=== PATIENT | male | born 1970 | race Two or more races ===

== ENCOUNTER 2020-10-23 15:23 | Emergency (ER) | payer MEDICAID ==
[~2020-10-23] VITALS: Ht 157.5 cm; Wt 50.0 kg
[2020-10-23 18:07] LABS: BASOPHILS % 1.1 % (0.0-2.0); EOSINOPHILS % 14.7 % (0.0-5.0); HEMOGLOBIN. 13.3 g/dL (14.0-18.0); LYMPHOCYTES % 17.1 % (20.0-50.0); MEAN CORPUSCULAR HEMOGLOBIN 29.6 pg (28.0-32.0); MEAN CORPUSCULAR VOLUME 86.8 fL (80.0-94.0); MEAN PLATELET VOLUME 8.3 fl (7.4-10.4); MONOCYTES % 6.1 % (2.0-8.0); PLATELET 208 x1000/uL (130-400); RED BLOOD CELL COUNT 4.49 mill/uL (4.7-6.1); RED CELL DISTRIBUTION WIDTH 13.6 % (11.6-14.6)
[2020-10-23 18:13] LABS: CHLORIDE 108 mEq/L (98-107)
[2020-10-23] MEDS ORDERED: CLOT15CR27 TP (18:23)
[2020-10-23 18:35] VITALS: BP 127/71
[2020-10-24] MEDS ORDERED: TOPUD PO (09:50)
== END 2020-10-23 18:37 | disposition home or self-care (01) ==
LOC: ER 15:23
DX: B35.4 Tinea corporis (principal)
CPT/HCPCS: 36415; 80053; 83880; 84484; 85025; 99283

== ENCOUNTER 2020-10-24 09:30 | Emergency (ER) | payer MEDICAID ==
[~2020-10-24] VITALS: Ht 154.9 cm; Wt 63.0 kg
[~2020-10-24 09:30] MED LIST: CLOT15CR27 TP
[2020-10-24 09:35] VITALS: BP 109/67
[2020-10-24] MEDS ORDERED: ACETAMINOPHEN 325MG TABLET PO ONE (09:45)
[2020-10-24] MEDS ORDERED: TOPUD PO (09:50)
== END 2020-10-24 10:01 | disposition home or self-care (01) ==
LOC: ER 09:30
DX: B35.8 Other dermatophytoses (principal); F10.21 Alcohol dependence, in remission
CPT/HCPCS: 99282

== ENCOUNTER 2020-10-24 15:44 | Emergency (ER) | payer MEDICAID ==
[~2020-10-24] VITALS: Ht 157.5 cm; Wt 63.0 kg
[~2020-10-24 15:44] MED LIST changes: +TOPUD PO
[2020-10-24] MEDS ORDERED: ACETAMINOPHEN 325MG TABLET PO ONE (18:00)
[2020-10-24 18:56] VITALS: BP 131/78
== END 2020-10-24 19:25 | disposition home or self-care (01) ==
LOC: ER 15:44
DX: M79.605 Pain in left leg (principal)
CPT/HCPCS: 93971; 99284